=== PATIENT | male | born 1995 | race Asian ===

== ENCOUNTER 2024-04-29 18:01 | Emergency (ER) | payer MEDICAID ==
[~2024-04-29] VITALS: Ht 175.3 cm; Wt 59.4 kg
[2024-04-29 18:47] VITALS: TEMP 98.5
[2024-04-29] MEDS ORDERED: IBUPROFEN 600 MG TABLET ONE (20:55)
[2024-04-29] MEDS: IBUPROFEN 600 MG TABLET PO ONE (20:56)
[2024-04-29 21:10] LABS: APPEARANCE,URINE Clear (CLEAR); BILIRUBIN,URINE Negative (NEGATIVE); BLOOD, URINE Negative Ery/uL (NEGATIVE); COLOR,URINE YELLOW (YELLOW); KETONES,URINE 15 mg/dL (NEGATIVE); LEUKOCYTE ESTERASE ,URINE Negative (NEGATIVE); NITRITE, URINE Negative (NEGATIVE); PH,URINE 5.5 (5.0-8.0); PROTEIN,URINE Negative (NEGATIVE); UGLUCOSE Negative (NEGATIVE); UROBILINOGEN,URINE 0.2 EU/dL (0.2)
[2024-04-29 22:30] LABS: BASOPHILS % (AUTO) 0.1 % (0.0-2.0); EOSINOPHILS % (AUTO) 0.3 % (0.0-6.0); HEMATOCRIT 38 % (39-51); HEMOGLOBIN 12.9 g/dL (13.5-17.5); LYMPHOCYTES # (AUTO) 2.9 K/uL (0.8-4.8); LYMPHOCYTES % (AUTO) 21.4 % (20.0-44.0); MEAN CORPUSCULAR HEMOGLOBIN 29 PG (26.0-33.0); MEAN CORPUSCULAR HGB CONC 34 g/dl (31.0-36.0); MEAN CORPUSCULAR VOLUME 87 fL (80-96); MONOCYTES # (AUTO) 0.9 K/uL (0.1-1.30); MONOCYTES % (AUTO) 6.9 % (2.0-12.0); NEUTROPHILS # (AUTO) 9.8 K/uL (1.8-8.9); NEUTROPHILS % (AUTO) 71.3 % (43.0-81.0); PLATELET COUNT (AUTO) 191 K/uL (150-450); RED CELL DISTRIBUTION WIDTH 13.2 % (11.5-15.0); WHITE BLOOD COUNT (AUTO) 13.7 K/uL (4.3-11.0)
[2024-04-29 22:39] LABS: CREATININE 0.9 mg/dL (0.6-1.3); POTASSIUM 4.2 mmol/L (3.5-5.1)
[2024-04-29] MEDS ORDERED: DOXY100C2 PO (22:56)
[2024-04-29] MEDS ORDERED: IBUP-1490 PO (22:56)
[2024-04-29] MEDS ORDERED: ACET-2605 PO (22:56)
[2024-04-29] MEDS ORDERED: DOXYCYCLINE HYCLATE (100 MG) 100 MG TABLET ONE (23:03)
[2024-04-29] MEDS ORDERED: CEFTRIAXONE 500 MG VIAL ONE (23:03)
[2024-04-29] MEDS ORDERED: LIDOCAINE 1% INJ 50 ML MDV IJ ONE (23:05)
[2024-04-29] MEDS: CEFTRIAXONE 500 MG VIAL IM ONE (23:11)
[2024-04-29] MEDS: DOXYCYCLINE HYCLATE (100 MG) 100 MG TABLET PO ONE (23:11)
[2024-04-29 23:13] VITALS: BP 121/70; O2SAT 99
== END 2024-04-29 23:15 | disposition home or self-care (01) ==
LOC: EDSEX 18:08 → ER 18:08
DX: R59.0 Localized enlarged lymph nodes (principal); R10.30 Lower abdominal pain, unspecified
CPT/HCPCS: 99285; 96372; 76870; 85025; 80048; 81003; 36415; J3490; J0696